=== PATIENT | female | born 1990 | race African-American/Black ===

== ENCOUNTER 2023-12-29 02:59 | Emergency (ER) | payer MEDICAID, OTHER ==
[~2023-12-29] VITALS: Ht 160 cm; Wt 87.0 kg
[~2023-12-29 02:59] MED LIST: CALC-1139; PREN1TAB49 PO
[2023-12-29] MEDS ORDERED: METHYLPREDNISOLONE SOD SUCC 125MG/2ML (ACT-O-VIAL) IV STA (03:22)
[2023-12-29] MEDS ORDERED: MAGNESIUM 2 G PREMIX 50 ML IV ONE (03:30)
[2023-12-29 03:42] VITALS: PULSE 117; RESP 23; O2SAT 97
[2023-12-29] MEDS: IPRATROPIUM BROMIDE (0.02%) 0.5MG/2.5ML NEB HHN STA (03:42)
[2023-12-29] MEDS: ALBUTEROL (0.083%) 2.5MG/3ML NEB HHN SCH (03:43)
[2023-12-29] MEDS ORDERED: ALBU6.7H15 INH (05:06)
[2023-12-29] MEDS ORDERED: NAPR-1176 MT (05:06)
[2023-12-29] MEDS ORDERED: P20 MT (05:06)
[2023-12-29 05:39] VITALS: BP 117/66; PULSE 100; RESP 17; TEMP 98.5
== END 2023-12-29 05:40 | disposition home or self-care (01) ==
LOC: ER 02:59
DX: J45.901 Unspecified asthma with (acute) exacerbation (principal); R07.9 Chest pain, unspecified; I10 Essential (primary) hypertension; F17.200 Nicotine dependence, unspecified, uncomplicated
CPT/HCPCS: 71045; 94640; 99283; J3475; J2919; Z7610 ×2